=== PATIENT | male | born 1970 | race Caucasian/White ===

== ENCOUNTER → 2017-11-20 | Outpatient (CLI) | payer BC | END | disposition home or self-care (01) | LOC: PCVCIMAG 10:12 | DX: I10 Essential (primary) hypertension (principal); R53.83 Other fatigue; E78.5 Hyperlipidemia, unspecified; I49.3 Ventricular premature depolarization; R00.0 Tachycardia, unspecified; R00.2 Palpitations | CPT/HCPCS: 76770; 93325; 93351; 93975 ==